=== PATIENT | female | born 1975 | race Caucasian/White ===

== ENCOUNTER 2020-09-21 13:15 | Outpatient (RCR) | payer MEDICAID, SELFPAY ==
[2020-08-31 14:39] VITALS: BP 136/84; PULSE 89; RESP 16; TEMP 36.4
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
[2020-09-07 15:36] VITALS: BP 142/62; PULSE 83; RESP 18; TEMP 35.8
[2020-09-07 15:36] LABS: Erythrocyte Sedimentation Rate 52 mm/hr (0-30)
[2020-09-07 15:39] LABS: Absolute Lymphocyte Count 1.81 X10^3/uL (0.83-4.51); Absolute Neutrophil Count 7.5 X10^3/uL (2.0-7.7); Basophil# 0.07 X10^3/uL; Basophil% 0.7 % (0-1); Eosinophil# 0.14 X10^3/uL; Eosinophils% 1.4 % (0-5); Hematocrit 38.7 % (37-47); Hemoglobin 11.7 g/dL (12.0-15.0); Lymphocyte # 1.81 X10^3/ul (4.0); Lymphocyte % 17.5 % (19-41); Mean Corp Hgb Conc 30.2 g/dL (32-36); Mean Corpuscular Hgb 27.1 pg (27.0-32.0); Mean Corpuscular Volume 89.6 fL (81-99); Mean Platelet Vol. 9.9 fl (6.2-12.0); Monocyte# 0.84 X10^3/uL; Monocyte% 8.1 % (0-10); NRBC Flagged by Analyzer 0 % (0-5); Neutrophil # 7.45 X10^3/uL (2.7-7.7); Neutrophil % 71.8 % (47-70); Platelet Count 319 K/mm3 (150-450); RBC Distribution Width CV 14.8 % (11.6-14.6); RBC Distribution Width SD 48.4 fl (35.1-43.9); Red Blood Count 4.32 M/mm3 (4.2-5.4); White Blood Count 10.4 K/mm3 (4.4-11.0)
[2020-09-07 16:06] LABS: ALB/GLOB Ratio 0.6 RATIO (0.9-2.4); AST(SGOT) 33 U/L (15-37); Alanine Aminotransfer ALT/SGPT 35 U/L (13-56); Albumin, Serum 2.9 g/dL (3.2-5.0); Alkaline Phosphatase 94 U/L (45-117); Anion Gap 2 (5-15); BUN 11 mg/dL (7-18); BUN/Creat Ratio 15.4 RATIO (10-20); Calcium,Total 8.5 mg/dL (8.5-10.1); Chloride 106 mmol/L (98-107); Creatinine, Serum 0.72 mg/dL (0.55-1.02); EST Glomerular Filtration Rate 94 mL/min (>60); Est Glom Filt Rate - Afr Amer 114 mL/min (>60); Globulin 4.9 g/dL (2.2-4.2); Glucose 99 mg/dL (74-106); Potassium 4.7 mmol/L (3.5-5.1); Prealbumin 13.8 mg/dL (20.0-40.0); Protein, Total 7.8 g/dL (6.4-8.2); Sodium Level 134 mmol/L (136-145)
[2020-09-07 16:08] VITALS: BP 140/64
--- NOTE | 2020-09-07 16:31 | RAD_ITS ---
STUDY: X-RAY - RIGHT TIBIA AND FIBULA REASON FOR EXAM: Female, 44 years old. Ulceration on the lynne. TECHNIQUE: AP and lateral view(s) of the tibia and fibula were obtained. COMPARISON: None. FINDINGS: Normal visualized tibia. Normal visualized fibula. There is no acute fracture, dislocation or destructive osseous pathology.. The knee and ankle are unremarkable. There is soft tissue swelling of the lynne. Phleboliths are seen laterally lower leg. RAD/Tibia & Fibula 2 Views IMPRESSION: 1. No osseous or articular abnormality. 2. Soft tissue edema suggesting cellulitis. Electronically Signed: Juan Jose Alexander DO at 22:44 EST Tel [phone], Service support ,
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
--- NOTE | 2020-09-08 12:00 | WC ---
Labs and x-ray reviewed per Hebert Cotter NP. X-ray showed no osteomylitis. Sed rate elevated, prealbumin low. Hebert instructed to call patient and increase protein intake and supplement with 3 protein shakes daily. Spoke with patient to review test results per Hebert instructions. Patient voiced understanding.
[2020-09-14 14:12] VITALS: BP 121/50; PULSE 84; RESP 16; TEMP 36.1
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
--- NOTE | 2020-09-14 17:08 | WC ---
Patient stated she never received wound care supplies that were ordered on 08/31/20. Spoke with Kyra from [facility], she stated supplies were shipped on 09/01 and delivered on 09/02 to correct address. [facility] will re-ship supplies with signature required. Also ordered silvercel 4x5 sheets. Patient should receive supplies tomorrow or friday. Patient notified.
--- NOTE | 2020-09-21 10:16 | VDLE_ITS ---
Reason For Study: edema RIGHT LEFT CFV is compressible, spontaneous, phasic, CFV is compressible, spontaneous, phasic, competent and demonstrates normal competent, and demonstrates normal augmentation. augmentation. FV is compressible, spontaneous, phasic, FV is compressible, spontaneous, phasic, competent and demonstrates normal competent and demonstrates normal augmentation. augmentation. POP V is compressible, spontaneous, phasic, POP V is compressible, spontaneous, phasic, competent and demonstrates normal competent and demonstrates normal augmentation. augmentation. T/P Trunk is compressible. T/P Trunk is compressible. PTV is compressible. PTV is compressible. RT PerV is compressible. LT PerV is compressible. SFJ is competent and measures .5 cm. SFJ is competent and measures .74 cm. GSV proximal thigh measures .16 x .17 cm. GSV proximal thigh measures .27 x .26 cm. GSV at knee measures .18 x .18 cm. GSV at knee measures .2 x .23 cm. GSV above knee is competent. GSV above knee is competent. GSV below knee is INCOMPETENT for greater GSV below knee is INCOMPETENT for greater than 0.5 seconds. than 0.5 seconds. SSV proximal calf is INCOMPETENT for greater SSV proximal calf is competent and than 0.5 seconds and measures .28 x .3 cm. measures .26 x .3 cm. Procedure This is a venous duplex using B-mode, color flow and spectral Doppler. Exam performed in department. The exam was diagnostic. VL/Venous Duplex US - Leo Extrem Interpretation Summary Deep veins of the lower extremities are bilaterally patent and compressible seg mentally. There is no evidence of deep vein thrombosis on either side. Valvular competence appears in tact within the proximal deep venous systems bilaterally. The great saphenous veins appear bila terally patent and compressible segmentally. Sapheno-femoral junctions are bilaterally competent . The right great saphenous vein appears competent above the knee. The right great saphenous vein appears incompetent below the knee. The left great saphenous vein appears competent above the knee. The left great saphenous vein appears incompetent below the knee. The right small saphenous ve in is patent and incompetent. The left small saphenous vein is patent and competent. Ordering Physician: Hebert Cotter Performed By: Rafal Chua RVT
--- NOTE | 2020-09-21 10:16 | ART_ITS ---
Reason For Study: PAD Procedure A bilateral lower extremity continuous wave Doppler with analog waveform analysis,segmental pressures,and ankle brachial indexes without exercise. Left Segmental Pressures Left brachial= 108mmHg. Left posterior tibial artery = 142mmHg. Left dorsalis pedis artery = 127mmHg. Left digit = 86 mmHg. The left dorsalis pedis waveforms are triphasic. The left posterior tibial artery waveforms are triphasic. Right Segmental Pressures Right brachial= 113mmHg. Right posterior tibial artery = 153mmHg. Right dorsalis pedis artery = 141mmHg. Right digit = 89 mmHg. The right dorsalis pedis waveforms are triphasic. The right posterior tibial artery waveforms are triphasic. Indices The right ankle brachial index by the dorsalis pedis is 1.25. The right ankle brachial index by the posterior tibial artery is 1.35. The right digital-brachial index is .79. The left ankle brachial index by the dorsalis pedis is 1.12. The left ankle brachial index by the posterior tibial artery is 1.26. The left digital-brachial index is .76. VL/Lower Ext Art Exam w/o Exercis Interpretation Summary Triphasic Doppler waveforms are noted at ankle level bilaterally. Pulse-volume recordings appear satisfactory bilaterally. Resting ankle-brachial indices are normal bilaterally . Digital-brachial indices are normal bilaterally. There is no evidence of significant arterial occlusive disease in the lower ext remities bilaterally. Ordering Physician: Hebert Cotter Performed By: JULIENNE TERRELL Jacquelin
[2020-09-21 13:14] VITALS: BP 129/78; PULSE 86; TEMP 36
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
== END 2020-09-27 23:59 ==
LOC: WC 13:15
PROVIDERS: PCP Nurse Practitioner Family; Visit Provider Nurse Practitioner Family
DX: L97.913 Non-pressure chronic ulcer of unspecified part of right lower leg with necrosis of muscle (principal); I73.9 Peripheral vascular disease, unspecified; F11.11 Opioid abuse, in remission; V89.2XXA Person injured in unspecified motor-vehicle accident, traffic, initial encounter; F17.210 Nicotine dependence, cigarettes, uncomplicated; Y92.410 Unspecified street and highway as the place of occurrence of the external cause
CPT/HCPCS: 11042; 11043; 11045; 11046; 36415; 73590; 80053; 84134; 85025; 85652; 87070; 87075; 87077; 87186; 87205; 93923; 93970; 99203; G0463

== ENCOUNTER 2020-10-02 16:30 | Inpatient (IN) | payer MEDICAID, SELFPAY ==
[2020-10-02 16:31] VITALS: BP 125/80; PULSE 84; RESP 14; TEMP 36.8; O2SAT 100; BMI 26.2
[2020-10-02 17:26] LABS: ALB/GLOB Ratio 0.4 RATIO (0.9-2.4); AST(SGOT) 47 U/L (15-37); Alanine Aminotransfer ALT/SGPT 39 U/L (13-56); Albumin, Serum 2.1 g/dL (3.2-5.0); Alkaline Phosphatase 86 U/L (45-117); Anion Gap 2 (5-15); BUN 11 mg/dL (7-18); BUN/Creat Ratio 11.6 RATIO (10-20); Calcium,Total 8.2 mg/dL (8.5-10.1); Chloride 109 mmol/L (98-107); Creatinine, Serum 0.95 mg/dL (0.55-1.02); EST Glomerular Filtration Rate 68 mL/min (>60); Est Glom Filt Rate - Afr Amer 82 mL/min (>60); Estimated Creatinine Clearance 57.02 ml/min; Globulin 5.1 g/dL (2.2-4.2); Glucose 93 mg/dL (74-106); Protein, Total 7.2 g/dL (6.4-8.2); Sodium Level 132 mmol/L (136-145)
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
[2020-10-02 17:36] LABS: Alcohol, Blood (Medical)-Serum < 3.0 mg/dL
[2020-10-02 17:41] LABS: Amphetamine Urine VISTA NEGATIVE (<1000 ng/mL); Barbiturate Urine VISTA NEGATIVE (< 200 ng/mL); Benzodiazepine Urine VISTA NEGATIVE (< 200 ng/mL); Cocaine Urine VISTA POSITIVE (< 300 ng/mL); Ecstacy Urine VISTA POSITIVE (< 500 ng/mL); Methadone Urine VISTA NEGATIVE (< 300 ng/mL); PCP Urine VISTA NEGATIVE (< 25 ng/mL); THC Urine VISTA NEGATIVE (< 50 ng/mL); Vista UDS pH Range 5
[2020-10-02 17:45] LABS: Internal QC Validated? YES +Cl - CLEAR BKGD; Pregnancy, Serum, hCG Quali. NEGATIVE Negative
--- NOTE | 2020-10-02 17:47 | ED.DCSUM_ITS ---
- ER Visit Summary Date of Service: 10/02/20 Chief Complaint: Requesting detox History of Present Illness: The patient is a 44 F presenting requesting detox from heroin. Patient states she uses IV heroin daily 1.5 g/day. She denies other drug use although she states sometimes her heroin is mixed with things that she is not aware of. She denies alcohol use. She smokes tobacco. She states prior to the past year she was sober for approximately 4 years. She is currently being treated at the wound center for a right lower extremity wound which has been healing. She was referred here for detox for her heroin abuse. Physical Examination: Vitals are stable. Patient is afebrile. Alert no acute distress. HEENT exam is unremarkable. Neck is supple. Lungs are clear and equal bilaterally. Heart is regular rate and rhythm. Abdomen is soft nontender nondistended. Extremities right lower extremity anterior wound with no fluctuance or drainage. Skin is warm and dry. No focal neurologic deficit. Remainder of exam is unremarkable. Emergency Department Course and Treatment: Chemistries normal except sodium 132. AST 47. hCG negative. Tox positive for opiate, methamphetamine, cocaine. Alcohol negative. Discussed with hospitalist for admission. Disposition: Admission Impression: Opiate dependence This note was generated with [employer] dictation software. It may contain incorrect words, spelling, and punctuation that were not noted in review of the chart prior to signing ED Disposition - Plan for ED Patient: Referrals: Hebert Cotter NP, [employer]BSERVER HELPER-C [Primary Care Provider] -
--- NOTE | 2020-10-02 17:56 | CM.ED ---
Social Work Consult: Substance Abuse Referral source: Self referral due to reason for visit. Met with patient in room. Introduced self and case management social worker role. Patient agreeable to speak with this case management social worker. Patient is seeking medical management of withdrawal symptoms. Patient reports main motivation for coming in was [facility], Dr. Cotter. Patient reports substance of choice as Heroin. Patient verbally agreeing to [facility] while speaking with this case management social worker. This case management social worker able to answer patient questions. Support provided. Telephone call to Raphael Lutz. Raphael updated on patient admission. Benjamin Alvarado MSW, REEMA-S
[2020-10-02 18:14] VITALS: BP 125/80; PULSE 84; RESP 14; TEMP 36.8; O2SAT 100
[2020-10-02 18:41] VITALS: BMI 25.9; BMI 26.0
[2020-10-02 18:42] VITALS: BP 116/85; PULSE 68; RESP 18; TEMP 37.1; O2SAT 98
--- NOTE | 2020-10-02 20:26 | NURSING ---
Pt is still deciding if she wants IV fluids.
--- NOTE | 2020-10-02 20:56 | EKG12_ITS ---
Test Reason : POS TOX SCREEN Blood Pressure : / mmHG Vent. Rate : 068 BPM Atrial Rate : 068 BPM P-R Int : 156 ms QRS Dur : 092 ms QT Int : 418 ms P-R-T Axes : 053 036 037 degrees QTc Int : 444 ms Normal sinus rhythm Normal ECG No previous ECGs available Confirmed by LUDMILA RUASCH, JONG ([id number]), legal editor SARINA RICARDO ([id number]) on 10/06/2020 3:02:52 PM Referred By: ZEE Confirmed By:RADHIKA KEYS MD
[2020-10-02 20:58] LABS: HIV - WCH Non-Reactive (Nonreactive)
[2020-10-02 21:23] VITALS: BP 107/68; PULSE 75; RESP 16; TEMP 37.2; O2SAT 98
[2020-10-02] MEDS: cloNIDine HCl 0.1 MG Tablet PO (21:35)
[2020-10-02] MEDS: traZODone 100 MG Tablet PO (21:35)
[2020-10-02] MEDS: Acetaminophen 500 MG Tablet PO (21:35)
[2020-10-03 03:00] VITALS: BP 115/69; PULSE 65; RESP 15; TEMP 36.8; O2SAT 97
[2020-10-03 08:01] VITALS: O2SAT 97
--- NOTE | 2020-10-03 08:32 | NURSING ---
wound photo: right lateral lower leg
--- NOTE | 2020-10-03 08:33 | NURSING ---
wound photo: right lower leg
--- NOTE | 2020-10-03 08:34 | NURSING ---
wound photo: left lower leg
[2020-10-03 08:35] VITALS: BP 103/68; PULSE 67; RESP 16; TEMP 36.6; O2SAT 97
--- NOTE | 2020-10-03 09:12 | ADDICTION ---
This leader writer met with PT to conduct ASAM, MSE, DUDIT assessments and to plan for d/c. PT A&Ox4 and presented with euthymic mood/broad affect. All assessments and d/c plan completed, faxed to [facility] and placed in PT's chart on [facility]. PT stated that she is currently unsure of her plans following d/c from [facility]. This leader writer provided education regarding treatment options and resources in [place], by her request, and [place]. This leader writer will f/u with PT on 10/04/20 to finalize d/c plan. PT amiable to meeting tomorrow.
[2020-10-03] MEDS: Acetaminophen 500 MG Tablet PO (09:44)
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
[2020-10-03 15:55] VITALS: BP 126/82; PULSE 64; RESP 16; TEMP 36.7; O2SAT 100
[2020-10-03] MEDS: Ondansetron 8 MG Tablet PO (19:07)
[2020-10-03] MEDS: Buprenorphine HCl 2 MG TAB.SUBL SL (19:44)
[2020-10-03 19:54] VITALS: BP 154/92; PULSE 107; RESP 16; TEMP 36.7; O2SAT 100
[2020-10-03] MEDS: Ibuprofen 600 MG Tablet PO (22:14)
[2020-10-03] MEDS: Methocarbamol 750 MG Tablet 1500 MG PO (22:14)
[2020-10-03] MEDS: Dicyclomine 10 MG Capsule 20 MG PO (22:14)
[2020-10-03] MEDS: Mag Hydrox/Al Hydrox/Simeth 30 ML UDC PO (22:15)
[2020-10-03] MEDS: traZODone 100 MG Tablet PO (22:15)
[2020-10-03] MEDS: cloNIDine HCl 0.1 MG Tablet PO (22:15)
[2020-10-04] MEDS: Buprenorphine HCl 2 MG TAB.SUBL SL ×3 (03:18→18:53)
[2020-10-04 07:07] LABS: HEPATITIS B SURFACE AG Negative (Negative); Hepatitis A AB, Total Positive (Negative); Hepatitis A IgM Antibody Negative (Negative); Hepatitis B Core AB IgM Negative (Negative); Hepatitis B Core Ab Total Negative (Negative)
[2020-10-04 07:57] VITALS: O2SAT 98
[2020-10-04] MEDS: Collagenase 30gm Tube 1 APPLIC TOPICAL (09:11)
[2020-10-04 09:35] VITALS: BP 143/76; PULSE 61; RESP 16; TEMP 36.9; O2SAT 100
--- NOTE | 2020-10-04 09:37 | ADDICTION ---
This check writer salesperson met with PT in her room to finalize d/c plans. PT stated that she is feeling shitty and did not want to engage in therapeutic conversation. This check writer salesperson verified that PT has the lists of resources this check writer salesperson provided for [facility] in preparation for PT's discharge. This check writer salesperson will attempt to meet with PT tomorrow (10/05).
[2020-10-04 09:48] LABS: Hep B Surface Antibodies Reactive (.)
[2020-10-04] MEDS: Methocarbamol 750 MG Tablet 1500 MG PO ×2 (09:48→18:53)
[2020-10-04] MEDS: Ondansetron 8 MG Tablet PO ×2 (09:48→18:52)
[2020-10-04] MEDS: cloNIDine HCl 0.1 MG Tablet PO ×2 (09:48→18:53)
[2020-10-04] MEDS: hydrOXYzine PAM 25 MG Capsule 50 MG PO ×2 (09:48→18:53)
[2020-10-04] MEDS: Dicyclomine 10 MG Capsule 20 MG PO ×2 (09:48→18:53)
[2020-10-04 10:01] LABS: Hepatitis C Ab >11.0 s/co ratio (0.0-0.9)
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
[2020-10-04 14:35] VITALS: BP 129/77; PULSE 81; RESP 18; TEMP 37.2; O2SAT 97
[2020-10-04] MEDS: Mag Hydrox/Al Hydrox/Simeth 30 ML UDC PO (14:39)
[2020-10-04] MEDS: Acetaminophen 500 MG Tablet PO (14:39)
[2020-10-04] MEDS: Gabapentin 300 MG Capsule PO ×2 (14:39→23:14)
[2020-10-04 18:51] VITALS: BP 135/85; PULSE 74; RESP 16; TEMP 37.1; O2SAT 99
[2020-10-04] MEDS: traZODone 100 MG Tablet PO (23:14)
[2020-10-04 23:27] VITALS: BP 151/98; PULSE 74; RESP 16; TEMP 37.2; O2SAT 100
[2020-10-05] MEDS: Ibuprofen 600 MG Tablet PO (03:29)
[2020-10-05] MEDS: Buprenorphine HCl 2 MG TAB.SUBL SL ×2 (03:29→10:06)
[2020-10-05 03:30] VITALS: BP 160/82; PULSE 84; RESP 18; TEMP 37.3; O2SAT 97
[2020-10-05 07:32] VITALS: O2SAT 97
--- NOTE | 2020-10-05 08:07 | PCM.DC ---
- Discharge Diagnoses Current Active Problems: Current Active and Chronic Problems Nonhealing ulcer of right lower extremity (Acute) PVD (peripheral vascular disease) (Chronic) Tobacco abuse (Chronic) History of opioid abuse (Acute) You will use the following diet at home:: Regular Your food should be the consistency of: Regular Discharge Activity: May Not Drive Call your doctor if you observe: Fever of 101 or Higher, Coldness, Increased Pain, Numbness or Tingling, Change in Color, Inability to have a bowel movement, Shortness of breath, Dizziness, Fainting spells, Swelling in the ankles, Chest pain, Prolonged hiccoughing, Increased palpitations (irregular heartbeat), Calf discomfort, Uncontrolled pain Additional Instructions: Follow-up opioid outpatient rehab for Vivitrol treatment Allergies/Adverse Reactions: Allergies No Known Allergies Allergy (Verified 10/02/20 16:31) Medications to take at Discharge Nicotine [Nicoderm Cq] 21 mg TD DAILY #30 patch 10/05/20 The following prescriptions were given: Nicotine [Nicoderm Cq] 21 mg TD DAILY #30 patch Transmission Status: Pending to [facility] Primary Care Physician: Hebert Cotter NP, [employer] P[employer] DEVELOPER-C [Primary Care Provider] - Please follow up with your Primary Care Physician in: in 2 weeks Test Results: Test results from this visit will be discussed in further detail at your follow-up appointment, if applicable.
--- NOTE | 2020-10-05 08:07 | PCM.DC.SUM ---
Discharge Date and Diagnosis - Problem List Patient Problems: Active and Suspected Problems Nonhealing ulcer of right lower extremity (Acute) History of opioid abuse (Acute) Date of Admission: 10/02/20 Date of Discharge: 10/05/20 - Primary Discharge Diagnosis Acute Problems: Active Problems Nonhealing ulcer of right lower extremity (Acute) History of opioid abuse (Acute) - Secondary Discharge Diagnosis Chronic Problems: Chronic Problems PVD (peripheral vascular disease) (Chronic) Tobacco abuse (Chronic) Hospital Course and Treatment Consultations 10/02/20 18:40 Consult: Onc/Wound/supervisor rubber covering Routine Comment: Summary of Care Provided: The patient is a 44 year old F admitted for acute opioid withdrawal medical stabilization. She is on buprenorphine based other supportive medications as needed to control anxiety, restless leg symptoms. COWS/CINA monitoring was done. Patient has severe anxiety, restlessness, aches and pains. Discussed with Raeann Henriquez RN. Hepatitis profile shows chronic hepatitis A with IgM negative but total antibody positive. Hepatitis C antibody positive suggestive of chronic hepatitis C. HIV 1 and 2 antibody nonreactive. She has planned Vivitrol as an outpatient probably 8 to 10 days after last dose of buprenorphine which she had in the hospital. Bilateral superficial ulcer on the shins: Erythema has decreased. Chronic opioid use and dependence in progress, cigarette smoking, nicotine use and dependence, polysubstance use, cocaine and methamphetamine: U tox positive of opioids, methamphetamine and cocaine. Alcohol level 0. I have discussed my assessment with DILIP Pereira and orders have been reviewed. Patient Problems: Active and Suspected Problems Nonhealing ulcer of right lower extremity (Acute) History of opioid abuse (Acute) Objective: Patient heart rate and blood pressure are controlled. Still feels mild anxiety and restless. Discussed with the 180 case planner. Physical exam: General: Alert, Oriented x3, Cooperative HEENT: Atraumatic, PERRLA, EOMI, Normocephalic Oral: No Gingival or Mucosal Lesions/ Ulcerations Neck: Supple, No JVD, Negative Carotid Bruits Lungs: Air entry diminished in bilateral lung bases. No crepitation/rhonchi Cardiovascular: Regular rate, Regular Rhythm, Normal S1, Normal S2, No murmurs Abdomen: Bowel Sounds Present, Soft, Non Tender, Non-Distended : No renal angle tenderness. No suprapubic tenderness. Extremities: Chronic woody induration of both upper and lower extremities secondary to thrombophlebitis. No edema, Capillary Refill Less than 3 Seconds Skin: Bilateral superficial ulcer on the shins. Has improved. Musculoskeletal: No Tenderness to Palpation of Joints or Extremities Neurological: Cranial nerves II-XII grossly intact, Deep Tendon Reflexes 2+/4 and Symmetrical, Neuro grossly intact Psych/Mental Status: Normal Affect, Appropriate. - Physical Exam Vitals/I&O's: Vital Signs Temp Pulse Resp BP Pulse Ox 99.2 F H 84 18 160/82 H 97 10/05/20 03:30 10/05/20 03:30 10/05/20 03:30 10/05/20 03:30 10/05/20 03:30 Oxygen Delivery Method Room Air Weight: 137 lb 8 oz Body Mass Index (BMI) 25.9 Intake and Output for Last 24 Hours 10/03/20 10/04/20 10/05/20 23:59 23:59 23:59 Intake Total 850 / 850 Balance 850 / 850 Laboratory Results 10/02/20 19:37: Hepatitis A IgM Ab Negative, Hepatitis A Ab Total Positive H, Hep Bs Antigen Negative, Hep B Core Total Ab Negative, Hep B Core IgM Ab Negative, Hepatitis C Ab Confirm >11.0 H Current Medications Acetaminophen (Acetaminophen 500 Mg Tablet) 500 mg PO Q4H PRN PRN PRN Reason: Temp > 100.4 F, pain 1-10 Last Admin: 10/04/20 14:39 Dose: 500 mg Documented by: Al Hydroxide/Mg Hydroxide (Mag Hydrox/Al Hydrox/Simeth 30 Ml Udc) 30 ml PO Q6H PRN PRN PRN Reason: dyspesia Last Admin: 10/04/20 14:39 Dose: 30 ml Documented by: Albuterol Sulfate (Albuterol 2.5 Mg/3 Ml Vial.Neb.) 2.5 mg INHALATION Q2H PRN PRN PRN Reason: Dyspnea, wheezing Bisacodyl (Bisacodyl 10 Mg Suppository) 10 mg RC DAILY PRN PRN Reason: Constipation Buprenorphine HCl (Buprenorphine Hcl 2 Mg Tab.Subl) 2 mg SL Q8H OMER; Taper Stop: 10/06/20 19:29 Last Admin: 10/05/20 03:29 Dose: 2 mg Documented by: Clonidine (Clonidine Hcl 0.1 Mg Tablet) 0.1 mg PO Q8H PRN PRN PRN Reason: RESTLESSNESS Last Admin: 10/04/20 18:53 Dose: 0.1 mg Documented by: Collagenase (Collagenase 30gm Tube) 1 applic TOPICAL DAILY [facility]; Protocol Last Admin: 10/04/20 09:11 Dose: 1 applic Documented by: Dicyclomine HCl (Dicyclomine 10 Mg Capsule) 20 mg PO Q6H PRN PRN PRN Reason: Abdominal Discomfort Last Admin: 10/04/20 18:53 Dose: 20 mg Documented by: Gabapentin (Gabapentin 300 Mg Capsule) 300 mg PO Q8H PRN PRN PRN Reason: moderate to severe anxiety Last Admin: 10/04/20 23:14 Dose: 300 mg Documented by: Hydralazine HCl (Hydralazine 20 Mg/Ml Vial) 10 mg IV Q4H PRN PRN PRN Reason: SBP > 160 Hydroxyzine Pamoate (Hydroxyzine Swapna 25 Mg Capsule) 50 mg PO Q6H PRN PRN PRN Reason: mild anxiety Last Admin: 10/04/20 18:53 Dose: 50 mg Documented by: Ibuprofen (Ibuprofen 600 Mg Tablet) 600 mg PO Q8H PRN PRN PRN Reason: PAIN Last Admin: 10/05/20 03:29 Dose: 600 mg Documented by: Loperamide HCl (Loperamide 2 Mg Capsule) 2 mg PO Q4H PRN PRN PRN Reason: LOOSE STOOLS Methocarbamol (Methocarbamol 750 Mg Tablet) 1,500 mg PO Q6H PRN PRN PRN Reason: MUSCLE SPASM Last Admin: 10/04/20 18:53 Dose: 1,500 mg Documented by: Nicotine (Nicotine 21 Mg Patch) 21 mg TD DAILY [facility] Last Admin: 10/04/20 09:48 Dose: 21 mg Documented by: Ondansetron HCl (Ondansetron 8 Mg Tablet) 8 mg PO Q8H PRN PRN PRN Reason: NAUSEA Last Admin: 10/04/20 18:52 Dose: 8 mg Documented by: Senna (Senna Tablet) 2 tablet PO QHS PRN PRN Reason: Constipation Trazodone HCl (Trazodone 100 Mg Tablet) 100 mg PO QHS PRN PRN PRN Reason: INSOMNIA Last Admin: 10/04/20 23:14 Dose: 100 mg Documented by: Home Medications: Medications to take at Discharge Nicotine [Nicoderm Cq] 21 mg TD DAILY #30 patch 10/05/20 Following Prescriptions Were Given to Patient: Nicotine [Nicoderm Cq] 21 mg TD DAILY #30 patch Transmission Status: Received by [facility] Primary Care Physician: Hebert Cotter NP, MAILING SECTION CLERK-C [Primary Care Provider] - Medical Necessity - Tobacco Use Smoking Status: Current every day smoker Tobacco Use: Cigarettes Meaningful Use Info Meaningful Use Diagnoses (Choose all that apply): None applicable Inpatient E&M: 43904 [facility]
[2020-10-05 09:10] VITALS: BP 136/90; PULSE 75; RESP 18; TEMP 37.3; O2SAT 96
[2020-10-05 10:10] VITALS: BP 136/90; PULSE 75; RESP 18; TEMP 37.3; O2SAT 100
== END 2020-10-05 10:20 | disposition home or self-care (01) | DRG 773 ==
LOC: ED 17:14 → MS3 17:50
PROVIDERS: Admitting Provider Family Medicine; Emergency Provider Emergency Medicine; PCP Nurse Practitioner Family; Visit Provider Internal Medicine
DX: F11.23 Opioid dependence with withdrawal (principal); F17.210 Nicotine dependence, cigarettes, uncomplicated; I73.9 Peripheral vascular disease, unspecified; B18.2 Chronic viral hepatitis C; V89.2XXD Person injured in unspecified motor-vehicle accident, traffic, subsequent encounter; L97.829 Non-pressure chronic ulcer of other part of left lower leg with unspecified severity; L97.819 Non-pressure chronic ulcer of other part of right lower leg with unspecified severity; F14.90 Cocaine use, unspecified, uncomplicated; F15.90 Other stimulant use, unspecified, uncomplicated
CPT/HCPCS: 36415; 80053; 80307; 82077; 84703; 86703; 86704; 86705; 86706; 86708; 86709; 86803; 87340; 93005; 99283; 99406

== ENCOUNTER 2020-10-26 14:30 | Outpatient (RCR) | payer MEDICAID, SELFPAY ==
[2020-09-28 00:48] VITALS: BP 129/78; PULSE 86; RESP 16; TEMP 36
[2020-10-12 14:39] VITALS: BP 145/93; PULSE 94; RESP 18; TEMP 36.4
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
[2020-10-16 11:00] VITALS: BP 136/86; PULSE 81; RESP 16; TEMP 36.7
[2020-10-19 14:45] VITALS: BP 143/85; PULSE 71; TEMP 36.9
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
[2020-10-26 14:36] VITALS: BP 121/68; PULSE 69; RESP 20; TEMP 37.2
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
== END 2020-10-27 23:59 ==
LOC: WC 14:30
PROVIDERS: PCP Nurse Practitioner Family; Visit Provider Nurse Practitioner Family
DX: L97.913 Non-pressure chronic ulcer of unspecified part of right lower leg with necrosis of muscle (principal); I87.2 Venous insufficiency (chronic) (peripheral); I73.9 Peripheral vascular disease, unspecified; F11.11 Opioid abuse, in remission; F17.210 Nicotine dependence, cigarettes, uncomplicated; V89.2XXA Person injured in unspecified motor-vehicle accident, traffic, initial encounter; Y92.410 Unspecified street and highway as the place of occurrence of the external cause
CPT/HCPCS: 15271; 29581; Q4101

== ENCOUNTER 2020-11-20 17:29 | Observation (INO) | payer MEDICAID, SELFPAY ==
[2020-10-02 18:41] VITALS: BMI 25.9
[2020-11-20 17:30] VITALS: BP 124/78; PULSE 80; RESP 16; TEMP 36.4; O2SAT 96; BMI 26.0
--- NOTE | 2020-11-20 18:02 | EX.ED.DYSGE1 ---
HPI History of Present Illness Chief Complaint: Substance Abuse Detail of Chief Complaint: Substance abuse and swollen red left hand Informant: patient and spouse/S.O. Onset/Context/Timing Onset: Days (Past several days the right hand has been red and swollen) Context: Sudden Onset Timing: Continuous Quality: Tightness and redness dorsum left hand Location: Dorsum left hand Current Severity: Mild Maximum Severity: Mild Worsened by: IV drug use Relieved by: Nothing Associated Symptoms Associated Symptoms: No associated symptoms and no history of being immune suppressed, rheumatic Narrative Narrative: Patient is a 44-year-old woman who injects half a gram of heroin a day. Last detox was several months ago. She states she is hepatitis negative and HIV negative. She last used this morning. She has not injected into her left hand for the past 3 to 4 days. She denies fever, chills or night sweats. Denies weight loss. She denies ocular, visual auditory symptoms. She denies chest pain, shortness of breath or difficulty breathing. She denies nausea, vomiting or diarrhea. She denies myalgias or arthralgias. Prior similar symptoms: Yes Recent Illness/Hospitalization: Yes (Patient states she was admitted to detox approximately 3 months ago.) [facility] Medical History (Updated 11/20/20 @ 19:[address] Toño Whitley MD) Heroin abuse Home Medications NK 11/20/20 [History Last Taken Unknown] Allergy/AdvReac Type Severity Reaction Status Date / Time No Known Allergies Allergy Verified 11/20/20 17:31 Surgical History (Updated 11/20/20 @ 18:40 by Annette Vyas) History of cholecystectomy History of tonsillectomy History of tubal ligation Social History (Updated 11/20/20 @ 18:[address] Toño Whitley MD) household members: significant other Smoking Status: Current every day smoker alcohol intake: current alcohol intake frequency: a few times a week substance use type: heroin ROS ROS ED Constitutional Constitutional ED: Denies chills, fever(s), subjective or sweats Eyes Eyes: Denies blurry vision, change in vision or diplopia ENT ENT ED: Denies ear pain, rhinorrhea or sore throat Cardiovascular Cardiovascular: Denies chest pain, palpitations or racing heartbeat Respiratory/Chest Respiratory/Chest: Denies cough, dyspnea or dyspnea on exertion Gastrointestinal Gastrointestinal: Denies abdominal pain, diarrhea, nausea or vomiting Genitourinary Genitourinary ED: Denies dysuria, hematuria or urinary frequency Musculoskeletal Musculoskeletal: Reports other Details: Swelling and redness left hand ; Denies arthralgias, back pain, myalgias or neck pain Integumentary Reports rash Neurologic Neurologic: Denies headache(s) or weakness Allergic/Immunologic Allergic/Immunologic ED: Denies mouth swelling, tongue swelling or urticaria EXAM Physical Exam Const Vital Signs: 11/20/20 17:30 11/20/20 18:37 11/20/20 19:05 Temperature 97.6 F L 98.0 F Temperature Source Temporal Oral Pulse Rate 80 70 Respiratory Rate 16 13 17 Blood Pressure 124/78 H 112/72 Blood Pressure Mean 93 85 Pulse Ox 96 Oxygen Delivery Method Room Air Room Air Room Air Positive well nourished and well developed General Appearance ED: well developed and NAD HEENT Reports TM's clear and moist mucous membranes HEENT Narrative: Nares patent. Ears appear normal. There is no asymmetry of the face. Tympanic Membrane ED: Yes TM's clear Eyes PERRL and EOMs intact bilaterally General Eye ED: Negative for pale conjunctiva or scleral icterus Neck no lymphadenopathy, supple and no JVD Chest Wall inspection of chest normal Resp normal respiratory effort and clear to auscultation bilaterally Cardio regular rate, regular rhythm, S1 normal heart sound, S2 normal heart sound and no murmurs GI normal to inspection, nondistended, normoactive bowel sounds Back/Spine no CVA tenderness Cervical Spine: Negative for cervical spine tenderness Thoracic Spine / Upper Back: Negative for thoracic spinal tenderness or paraspinal muscle tenderness Extremity Extremity Narrative: There is evidence of cellulitis dorsum left hand. There is no fluctuance. There is no lymphangitis. There is no epitrochlear lymphadenopathy noted. General Extremety ED: Yes edema and tenderness General Extremity: edema Neuro oriented x3, CN's II-XII intact bilaterally and no sensory deficits noted Sensorium / Orientation: alert Motor Exam: strength 5/5 throughout Psych mental status grossly normal Skin no rashes or lesions noted MDM MDM MDM Narrative Medical decision making narrative: Patient presents for detox. Appropriate orders were placed for addiction medicine. Because of the cellulitis a sepsis work-up was initiated. If lactate is elevated will obtain blood cultures prior to administration of IV antibiotics. If lactate is normal will start on appropriate biotics for skin infection. Lab Data Attestation: I reviewed the patient's lab results. Labs: Laboratory Results - last 24 hr 11/20/20 11/20/20 11/20/20 18:30 18:30 18:30 WBC 9.2 RBC 4.20 Hgb 12.0 Hct 37.9 MCV 90.2 MCH 28.6 MCHC 31.7 L RDW Std Deviation 52.5 H RDW Coeff of Renuka 15.8 H Plt Count 314 MPV 10.1 Immature Gran % (Auto) 0.200 Neut % (Auto) 58.4 Lymph % (Auto) 24.6 [place] % (Auto) 11.6 H Eos % (Auto) 4.4 Baso % (Auto) 0.8 Absolute Neuts (auto) 5.4 Absolute Lymphs (auto) 2.27 Nucleated RBC % 0 Sodium 137 Potassium 3.9 Chloride 106 Carbon Dioxide 27.0 Anion Gap 4 L BUN 7 Creatinine 0.83 Estim Creat Clear Calc 65.27 Est GFR (MDRD) Af Amer 96 Est GFR (MDRD) Non-Af 79 BUN/Creatinine Ratio 8.4 L Glucose 80 Lactic Acid Calcium 8.6 Total Bilirubin 0.10 L AST 27 ALT 33 Alkaline Phosphatase 98 Total Protein 7.5 Albumin 3.1 L Globulin 4.4 H Albumin/Globulin Ratio 0.7 L Serum , Qual Urine Opiates Screen Urine Methadone Screen Ur Barbiturates Screen Ur Phencyclidine Scrn Ur Amphetamines Screen U Methamphetamin-MDMA U Benzodiazepines Scrn Urine Cocaine Screen U Cannabinoids Screen Ur Drug Screen Comment Ethyl Alcohol 6.0 11/20/20 11/20/20 11/20/20 18:30 18:30 18:57 WBC RBC Hgb Hct MCV MCH MCHC RDW Std Deviation RDW Coeff of Renuka Plt Count MPV Immature Gran % (Auto) Neut % (Auto) Lymph % (Auto) [place] % (Auto) Eos % (Auto) Baso % (Auto) Absolute Neuts (auto) Absolute Lymphs (auto) Nucleated RBC % Sodium Potassium Chloride Carbon Dioxide Anion Gap BUN Creatinine Estim Creat Clear Calc Est GFR (MDRD) Af Amer Est GFR (MDRD) Non-Af BUN/Creatinine Ratio Glucose Lactic Acid 1.8 Calcium Total Bilirubin AST ALT Alkaline Phosphatase Total Protein Albumin Globulin Albumin/Globulin Ratio Serum , Qual NEGATIVE Urine Opiates Screen POSITIVE H Urine Methadone Screen NEGATIVE Ur Barbiturates Screen NEGATIVE Ur Phencyclidine Scrn NEGATIVE Ur Amphetamines Screen NEGATIVE U Methamphetamin-MDMA POSITIVE H U Benzodiazepines Scrn NEGATIVE Urine Cocaine Screen POSITIVE H U Cannabinoids Screen NEGATIVE Ur Drug Screen Comment Ethyl Alcohol Talk screen is positive for opiates, methamphetamine and cocaine. White count is normal. Lactate is normal. Patient has no abnormal vital signs. Since patient does not have 2 sirs criteria blood cultures were not obtained prior to administration of antibiotics. Since she is an IV drug user will treat with Zosyn and vancomycin. Discharge Plan Triage Chief Complaint: Substance Abuse ED Provider: Toño Whitley Dx/Rx/DC Orders Clinical Impression: Cellulitis of finger of left hand, Heroin addiction, Cocaine use Prescriptions: No Action NK RF: 0 Primary Care Provider: Hebert Cotter NP Referrals: Hebert Cotter NP, [employer] [Primary Care Provider] - Disposition Disposition: Acute Care Hospital [facility]
[2020-11-20 18:37] VITALS: BP 112/72; PULSE 68; PULSE 70; RESP 12; RESP 13; TEMP 36.7
[2020-11-20 18:43] LABS: Absolute Lymphocyte Count 2.27 X10^3/uL (0.83-4.51); Absolute Neutrophil Count 5.4 X10^3/uL (2.0-7.7); Basophil# 0.07 X10^3/uL; Basophil% 0.8 % (0-1); Eosinophil# 0.41 X10^3/uL; Eosinophils% 4.4 % (0-5); Hematocrit 37.9 % (37-47); Lymphocyte # 2.27 X10^3/ul (0.83-4.51); Lymphocyte % 24.6 % (19-41); Mean Corp Hgb Conc 31.7 g/dL (32-36); Mean Corpuscular Hgb 28.6 pg (27.0-32.0); Mean Corpuscular Volume 90.2 fL (81-99); Mean Platelet Vol. 10.1 fl (6.2-12.0); Monocyte# 1.07 X10^3/uL; Monocyte% 11.6 % (0-10); NRBC Flagged by Analyzer 0 % (0-5); Neutrophil # 5.38 X10^3/uL (2.7-7.7); Neutrophil % 58.4 % (47-70); Platelet Count 314 K/mm3 (150-450); RBC Distribution Width CV 15.8 % (11.6-14.6); RBC Distribution Width SD 52.5 fl (35.1-43.9); White Blood Count 9.2 K/mm3 (4.4-11.0)
[2020-11-20 19:00] LABS: ALB/GLOB Ratio 0.7 RATIO (0.9-2.4); AST(SGOT) 27 U/L (15-37); Alanine Aminotransfer ALT/SGPT 33 U/L (13-56); Albumin, Serum 3.1 g/dL (3.2-5.0); Alkaline Phosphatase 98 U/L (45-117); Anion Gap 4 (5-15); BUN 7 mg/dL (7-18); BUN/Creat Ratio 8.4 RATIO (10-20); Calcium,Total 8.6 mg/dL (8.5-10.1); Chloride 106 mmol/L (98-107); Creatinine, Serum 0.83 mg/dL (0.55-1.02); EST Glomerular Filtration Rate 79 mL/min (>60); Est Glom Filt Rate - Afr Amer 96 mL/min (>60); Estimated Creatinine Clearance 65.27 ml/min; Globulin 4.4 g/dL (2.2-4.2); Glucose 80 mg/dL (74-106); Potassium 3.9 mmol/L (3.5-5.1); Protein, Total 7.5 g/dL (6.4-8.2); Sodium Level 137 mmol/L (136-145)
[2020-11-20 19:03] LABS: Internal QC Validated? YES +Cl - CLEAR BKGD; Pregnancy, Serum, hCG Quali. NEGATIVE Negative
[2020-11-20 19:04] LABS: Record Kit Lot#, Serum Preg. 42100
[2020-11-20 19:05] VITALS: RESP 17
[2020-11-20 19:09] LABS: Lactic Acid 1.8 mmol/L (0.4-1.9)
[2020-11-20 19:23] LABS: Amphetamine Urine VISTA NEGATIVE (<1000 ng/mL); Barbiturate Urine VISTA NEGATIVE (< 200 ng/mL); Benzodiazepine Urine VISTA NEGATIVE (< 200 ng/mL); Cocaine Urine VISTA POSITIVE (< 300 ng/mL); Ecstacy Urine VISTA POSITIVE (< 500 ng/mL); Methadone Urine VISTA NEGATIVE (< 300 ng/mL); PCP Urine VISTA NEGATIVE (< 25 ng/mL); THC Urine VISTA NEGATIVE (< 50 ng/mL); Vista UDS pH Range 5
--- NOTE | 2020-11-20 19:58 | HP.PCM_ITS ---
HPI - General HPI Narrative RODOLFO GONZÁLES, is a 44 F who presents today for detox from opioids. Patient also reports redness and swelling to left hand that presented yesterday. Patient states that she has not injected into left hand in 3 to 4 days. Patient states that her hand is painful 6 out of 10 and stiff. Patient is a heroin user reporting that she uses half a gram a day. Patient denies other drug use however patient's toxicology screen was positive for methamphetamines and cocaine. Patient also reports being 1/2 to 1 pack/day smoker. Patient denies fever, chills, shortness of breath, nausea, vomiting. Patient reports that her last use was earlier today. [facility] Medical History Heroin abuse Home Medications NK 11/20/20 [History Last Taken Unknown] Allergy/AdvReac Type Severity Reaction Status Date / Time No Known Allergies Allergy Verified 11/20/20 17:31 Surgical History History of cholecystectomy History of tonsillectomy History of tubal ligation Social History household members: significant other Smoking Status: Current every day smoker alcohol intake: current alcohol intake frequency: a few times a week substance use type: heroin ROS Constitutional Constitutional: Denies anorexia, chills or fatigue Cardiovascular Cardiovascular: Denies chest pain, edema or palpitations Respiratory/Chest Respiratory/Chest: Denies cough, shortness of breath at rest or shortness of breath with exertion Gastrointestinal Gastrointestinal: Denies abdominal pain, constipation, diarrhea, nausea or vomiting Genitourinary Genitourinary: Denies dysuria Musculoskeletal Musculoskeletal: Reports extremity pain and stiffness; Denies back pain Integumentary Integumentary: Reports wounds; Denies dry skin Neurologic Neurologic: Denies abnormal gait, abnormal speech, confusion or dizziness Psychiatric Psychiatric: Denies anxiety or depression Endocrine Endocrinology: Denies change in body appearance Hematologic/Lymphatic Hematologic/Lymphatic: Denies easy bleeding or easy bruising Vital Signs Vital Signs Vital Signs: 11/20/20 17:30 11/20/20 18:37 11/20/20 19:05 Temperature 97.6 F L 98.0 F Temperature Source Temporal Oral Pulse Rate 80 70 Respiratory Rate 16 13 17 Blood Pressure 124/78 H 112/72 Blood Pressure Mean 93 85 Pulse Ox 96 Oxygen Delivery Method Room Air Room Air Room Air Weight Weight: 138 lb Body Mass Index (BMI) 26.0 Physical Exam Const alert and oriented x3 General Appearance: cooperative HEENT normocephalic and head/scalp atraumatic Eyes PERRL Neck supple, no JVD and thyroid normal General: trachea midline Lymph Lymphatic: no lymphadenopathy noted Resp normal respiratory effort, normal air movement and clear to auscultation bilaterally Cardio regular rate, regular rhythm, S1 normal heart sound and S2 normal heart sound GI normal to inspection, nondistended, normoactive bowel sounds, soft to palpation and non-tender Extremity General Extremity: normal exam except as noted Left Upper Extremity: hand and digits inspection (Erythema and swelling noted to dorsal aspect of hand and fingers), palpation (Tender with palpation), ROM (Patient able to make a fist, reports tightness) and neurovascular exam (Sensation intact) Skin Rashes: rashes noted Wounds: wounds noted Neuro CN's II-XII intact bilaterally Psych thought process normal, cooperative and affect normal Appearance: appropriate Lab / Micro Data Result Diagrams: 11/20/20 18:30 11/20/20 18:30 Labs: Laboratory Results - last 24 hr 11/20/20 11/20/20 11/20/20 18:30 18:30 18:30 WBC 9.2 RBC 4.20 Hgb 12.0 Hct 37.9 MCV 90.2 MCH 28.6 MCHC 31.7 L RDW Std Deviation 52.5 H RDW Coeff of Renuka 15.8 H Plt Count 314 MPV 10.1 Immature Gran % (Auto) 0.200 Neut % (Auto) 58.4 Lymph % (Auto) 24.6 [place] % (Auto) 11.6 H Eos % (Auto) 4.4 Baso % (Auto) 0.8 Absolute Neuts (auto) 5.4 Absolute Lymphs (auto) 2.27 Nucleated RBC % 0 Sodium 137 Potassium 3.9 Chloride 106 Carbon Dioxide 27.0 Anion Gap 4 L BUN 7 Creatinine 0.83 Estim Creat Clear Calc 65.27 Est GFR (MDRD) Af Amer 96 Est GFR (MDRD) Non-Af 79 BUN/Creatinine Ratio 8.4 L Glucose 80 Lactic Acid Calcium 8.6 Total Bilirubin 0.10 L AST 27 ALT 33 Alkaline Phosphatase 98 Total Protein 7.5 Albumin 3.1 L Globulin 4.4 H Albumin/Globulin Ratio 0.7 L Serum , Qual Urine Opiates Screen Urine Methadone Screen Ur Barbiturates Screen Ur Phencyclidine Scrn Ur Amphetamines Screen U Methamphetamin-MDMA U Benzodiazepines Scrn Urine Cocaine Screen U Cannabinoids Screen Ur Drug Screen Comment Ethyl Alcohol 6.0 11/20/20 11/20/20 11/20/20 18:30 18:30 18:57 WBC RBC Hgb Hct MCV MCH MCHC RDW Std Deviation RDW Coeff of Renuka Plt Count MPV Immature Gran % (Auto) Neut % (Auto) Lymph % (Auto) [place] % (Auto) Eos % (Auto) Baso % (Auto) Absolute Neuts (auto) Absolute Lymphs (auto) Nucleated RBC % Sodium Potassium Chloride Carbon Dioxide Anion Gap BUN Creatinine Estim Creat Clear Calc Est GFR (MDRD) Af Amer Est GFR (MDRD) Non-Af BUN/Creatinine Ratio Glucose Lactic Acid 1.8 Calcium Total Bilirubin AST ALT Alkaline Phosphatase Total Protein Albumin Globulin Albumin/Globulin Ratio Serum , Qual NEGATIVE Urine Opiates Screen POSITIVE H Urine Methadone Screen NEGATIVE Ur Barbiturates Screen NEGATIVE Ur Phencyclidine Scrn NEGATIVE Ur Amphetamines Screen NEGATIVE U Methamphetamin-MDMA POSITIVE H U Benzodiazepines Scrn NEGATIVE Urine Cocaine Screen POSITIVE H U Cannabinoids Screen NEGATIVE Ur Drug Screen Comment Ethyl Alcohol Assessment & Plan Assessment/Plan (1) Desire for detoxification: (2) Heroin addiction: (3) Cellulitis of finger of left hand: PLAN: 1. Desire for detoxification -Admit to [facility] for ramp program -Buprenorphine taper ordered per protocol along with supportive medications for withdrawal -Regular diet -Case management consulted to coordinate with [facility] for outpatient follow- up -Vital signs per protocol 2. Heroin addiction -See above 3. Cellulitis of left hand -Likely related to IV drug use -Patient received first dose of Vanco and Zosyn in ER due to long-term IV drug use, will continue on admission -CBC and CMP daily, trend white blood cell count. -Encourage fluids -Elevate left hand -No obvious opening to skin or drainage at this time. If area begins to drain I would encourage ordering a wound culture. DVT Prophylaxis-ambulation, pharmacological prophylaxis not indicated This patient was seen by Alice Kapoor NP-C under the supervision of Dr. Dunne.
[2020-11-20 20:01] VITALS: BP 102/69; PULSE 63; RESP 18; TEMP 36.6; O2SAT 95
--- NOTE | 2020-11-20 20:32 | CM.ED ---
SOCIAL WORK Referral Source: Self-Referral Reason for Consult: Substance Abuse Patient presents for detox from heroin. Patient reported last use early this morning. Call to [facility] Treatment Navigator, Argelia to update on patient's admission. Argelia reports Florence to be in tomorrow morning to complete assessment. Plan: Admit to NATHALY Mcfarlane MSW, ELECT[employer]ICAL ENGINEERING TECHNOLOGIST
[2020-11-20 21:31] VITALS: BMI 25.6
[2020-11-20 21:49] VITALS: BP 115/65; PULSE 61; RESP 16; TEMP 36.6; O2SAT 97
--- NOTE | 2020-11-20 22:38 | PCM.RX.CS ---
Consult Pharmacy has been consulted to manage selected antiobiotic: Vancomycin Type of Consult: New start Suspected Infection: Skin/Soft tissue Labs: Sodium 137 mmol/L (136-145) 11/20/20 18:30 Potassium 3.9 mmol/L (3.5-5.1) 11/20/20 18:30 Chloride 106 mmol/L (98-107) 11/20/20 18:30 Carbon Dioxide 27.0 mmol/L (21.0-32.0) 11/20/20 18:30 Anion Gap 4 (5-15) L 11/20/20 18:30 BUN 7 mg/dL (7-18) 11/20/20 18:30 Creatinine 0.83 mg/dL (0.55-1.02) 11/20/20 18:30 Est GFR (MDRD) Af Amer 96 mL/min (>60) 11/20/20 18:30 Est GFR (MDRD) Non-Af 79 mL/min (>60) 11/20/20 18:30 BUN/Creatinine Ratio 8.4 RATIO (10-20) L 11/20/20 18:30 Glucose 80 mg/dL (74-106) 11/20/20 18:30 Weight used for dosin.6 kg Estimated Creatinine Clearance: 72.6 Goal Trough: 15-20 mcg/mL Pharmacy Plan for Drug Dosing: Pharmacy Service will continue to monitor and adjust dosing as required. Medications Vancomycin HCl (Vancomycin) 1,000 mg in 200 mls @ 200 mls/hr IV Q12H OMER Discontinued Medications Vancomycin HCl 1,500 mg/ (Sodium Chloride) 530 mls @ 250 mls/hr IV X1 ONE Stop: 11/20/20 22:07 Last Admin: 11/20/20 20:31 Dose: 250 mls/hr Documented by: Follow-Up Labs: Trough Vancomycin Labs to be done on [date and time ordered]: 11/22 @ 0800
[2020-11-21] MEDS: Ibuprofen 600 MG Tablet PO ×3 (00:26→11:37)
[2020-11-21 03:23] VITALS: BP 114/69; PULSE 55; RESP 16; TEMP 36.6; O2SAT 97
[2020-11-21 05:37] VITALS: BP 119/74; PULSE 63; RESP 16; TEMP 36.5; O2SAT 97
[2020-11-21 06:55] LABS: Absolute Lymphocyte Count 2.37 X10^3/uL (0.83-4.51); Absolute Neutrophil Count 5.4 X10^3/uL (2.0-7.7); Basophil# 0.07 X10^3/uL; Basophil% 0.8 % (0-1); Eosinophil# 0.41 X10^3/uL; Eosinophils% 4.4 % (0-5); Hematocrit 38.7 % (37-47); Hemoglobin 11.9 g/dL (12.0-15.0); Lymphocyte # 2.37 X10^3/ul (0.83-4.51); Lymphocyte % 25.6 % (19-41); Mean Corp Hgb Conc 30.7 g/dL (32-36); Mean Corpuscular Hgb 28.8 pg (27.0-32.0); Mean Corpuscular Volume 93.7 fL (81-99); Mean Platelet Vol. 10.9 fl (6.2-12.0); Monocyte# 1.04 X10^3/uL; Monocyte% 11.2 % (0-10); NRBC Flagged by Analyzer 0 % (0-5); Neutrophil # 5.36 X10^3/uL (2.7-7.7); Neutrophil % 57.8 % (47-70); Platelet Count 311 K/mm3 (150-450); RBC Distribution Width CV 15.6 % (11.6-14.6); RBC Distribution Width SD 54.3 fl (35.1-43.9); Red Blood Count 4.13 M/mm3 (4.2-5.4); White Blood Count 9.3 K/mm3 (4.4-11.0)
[2020-11-21 08:45] VITALS: BP 131/75; PULSE 70; RESP 16; TEMP 36.9; O2SAT 95
[2020-11-21] MEDS: Vancomycin IV 1,000 MG/200 ML BAG 200 MG IV (08:48)
--- NOTE | 2020-11-21 09:44 | ADDICTION ---
This creative writer met with PT to conduct ASAM, MSE, DUDIT assessments and to plan for d/c. PT A+Ox4 and engaged appropriately. PT requested referral to [facility]- referral made. This creative writer will f/u with PT and [facility] to coordinate admit. PT plans to d/c to home, to collect her belongings for residential, and will admit same day of d/c from [facility]. PT amiable to plan. All assessments completed, faxed to [facility] and placed in PT's chart. PT did not identify a need for transportation to home following d/c.
--- NOTE | 2020-11-21 12:46 | NURSING ---
Patient called out and states she wants to leave. She states that since she has not had any w/d symptoms yet she doesn't think she will have any at all. She states she is planning to go to [facility].
--- NOTE | 2020-11-21 13:52 | DS.PCM_ITS ---
Providers Date of Admission: 11/20/20 Primary Care Physician: LAURA ArguelloC Reason For Visit: OPIOID DETOX, CELLULITIS OF THE HAND Diagnosis Discharge Diagnosis (1) Desire for detoxification: Status: Acute (2) Heroin addiction: Status: Acute Code(s): F11.20 - Opioid dependence, uncomplicated (3) Cellulitis of finger of left hand: Status: Acute Code(s): L03.012 - Cellulitis of left finger Medications at Discharge Home Medications NK 11/20/20 Hospital Course Operations None Procedures None Summary of Care Provided Minutes Spent on Discharge: 15 Hospital Course: Leonie Rajan is a 44-year-old female who presented to the emergency department yesterday for acute opiate detox. She at that time also complained of redness and swelling on the dorsum of her left hand that started the day prior to presentation. She had last injected into her left hand 3 to 4 days prior to presentation. She uses a half a gram of heroin a day. She denied other drug use but her tox screen on admission was also positive for cocaine and methamphetamines. She was admitted to [facility] and treated with antibiotics for her hand and with a Suboxone taper for her opiate withdrawal. Supportive medications were ordered as well. In the early afternoon of 11/21/2020 the patient elected to leave AGAINST MEDICAL ADVICE and signed out. Discharge diagnoses Acute opiate withdrawal Cellulitis-dorsum of left hand Heroin addiction Polysubstance abuse Tobacco abuse Physical Exam Const alert, oriented x3, no apparent distress and average body habitus Constitutional Narrative: Middle-aged white female who appears older than stated age, sitting up in bed, appears comfortable General Appearance: cooperative Orientation / Consciousness: awake, oriented to person, oriented to place and oriented to time HEENT normocephalic and head/scalp atraumatic Eyes PERRL and EOMs intact bilaterally Neck supple Neck Narrative: Trachea midline Resp normal respiratory effort, no retractions and no use of accessory muscles Resp Narrative: Diminished diffusely but clear Cardio regular rate, regular rhythm, S1 normal heart sound, S2 normal heart sound, no murmurs, no rub, no gallops, no clicks and no JVD GI normal to inspection, nondistended, normoactive bowel sounds, soft to palpation, non-tender and non-distended Extremity Extremity Narrative: On the dorsum of the left hand there is a circular area that was mildly erythematous and indurated, this area was approximately the size of a silver dollar, it was mildly tender Neuro oriented x3, CN's II-XII intact bilaterally, moves all extremities and no focal motor deficits Sensorium / Orientation: awake, alert, oriented to person, oriented to place and oriented to time Speech: speech normal Psych Psych Narrative: Flat affect, depressed mood ABG / Lab / Microbiology Data Result Diagrams: 11/21/20 06:36 11/20/20 18:30 Laboratory: Laboratory Results - last 24 hr 11/20/20 11/20/20 11/20/20 18:30 18:30 18:30 WBC 9.2 RBC 4.20 Hgb 12.0 Hct 37.9 MCV 90.2 MCH 28.6 MCHC 31.7 L RDW Std Deviation 52.5 H RDW Coeff of Renuka 15.8 H Plt Count 314 MPV 10.1 Immature Gran % (Auto) 0.200 Neut % (Auto) 58.4 Lymph % (Auto) 24.6 [place] % (Auto) 11.6 H Eos % (Auto) 4.4 Baso % (Auto) 0.8 Absolute Neuts (auto) 5.4 Absolute Lymphs (auto) 2.27 Nucleated RBC % 0 Sodium 137 Potassium 3.9 Chloride 106 Carbon Dioxide 27.0 Anion Gap 4 L BUN 7 Creatinine 0.83 Estim Creat Clear Calc 65.27 Est GFR (MDRD) Af Amer 96 Est GFR (MDRD) Non-Af 79 BUN/Creatinine Ratio 8.4 L Glucose 80 Lactic Acid Calcium 8.6 Total Bilirubin 0.10 L AST 27 ALT 33 Alkaline Phosphatase 98 Total Protein 7.5 Albumin 3.1 L Globulin 4.4 H Albumin/Globulin Ratio 0.7 L Serum , Qual Urine Opiates Screen Urine Methadone Screen Ur Barbiturates Screen Ur Phencyclidine Scrn Ur Amphetamines Screen U Methamphetamin-MDMA U Benzodiazepines Scrn Urine Cocaine Screen U Cannabinoids Screen Ur Drug Screen Comment Ethyl Alcohol 6.0 11/20/20 11/20/20 11/20/20 18:30 18:30 18:57 WBC RBC Hgb Hct MCV MCH MCHC RDW Std Deviation RDW Coeff of Renuka Plt Count MPV Immature Gran % (Auto) Neut % (Auto) Lymph % (Auto) [place] % (Auto) Eos % (Auto) Baso % (Auto) Absolute Neuts (auto) Absolute Lymphs (auto) Nucleated RBC % Sodium Potassium Chloride Carbon Dioxide Anion Gap BUN Creatinine Estim Creat Clear Calc Est GFR (MDRD) Af Amer Est GFR (MDRD) Non-Af BUN/Creatinine Ratio Glucose Lactic Acid 1.8 Calcium Total Bilirubin AST ALT Alkaline Phosphatase Total Protein Albumin Globulin Albumin/Globulin Ratio Serum , Qual NEGATIVE Urine Opiates Screen POSITIVE H Urine Methadone Screen NEGATIVE Ur Barbiturates Screen NEGATIVE Ur Phencyclidine Scrn NEGATIVE Ur Amphetamines Screen NEGATIVE U Methamphetamin-MDMA POSITIVE H U Benzodiazepines Scrn NEGATIVE Urine Cocaine Screen POSITIVE H U Cannabinoids Screen NEGATIVE Ur Drug Screen Comment Ethyl Alcohol 11/21/20 11/21/20 06:36 06:36 WBC 9.3 RBC 4.13 L Hgb 11.9 L Hct 38.7 MCV 93.7 MCH 28.8 MCHC 30.7 L RDW Std Deviation 54.3 H RDW Coeff of Renuka 15.6 H Plt Count 311 MPV 10.9 Immature Gran % (Auto) 0.200 Neut % (Auto) 57.8 Lymph % (Auto) 25.6 [place] % (Auto) 11.2 H Eos % (Auto) 4.4 Baso % (Auto) 0.8 Absolute Neuts (auto) 5.4 Absolute Lymphs (auto) 2.37 Nucleated RBC % 0 Sodium Cancelled Potassium Cancelled Chloride Cancelled Carbon Dioxide Cancelled Anion Gap Cancelled BUN Cancelled Creatinine Cancelled Estim Creat Clear Calc Cancelled Est GFR (MDRD) Af Amer Cancelled Est GFR (MDRD) Non-Af Cancelled BUN/Creatinine Ratio Cancelled Glucose Cancelled Lactic Acid Calcium Cancelled Total Bilirubin Cancelled AST Cancelled ALT Cancelled Alkaline Phosphatase Cancelled Total Protein Cancelled Albumin Cancelled Globulin Cancelled Albumin/Globulin Ratio Cancelled Serum , Qual Urine Opiates Screen Urine Methadone Screen Ur Barbiturates Screen Ur Phencyclidine Scrn Ur Amphetamines Screen U Methamphetamin-MDMA U Benzodiazepines Scrn Urine Cocaine Screen U Cannabinoids Screen Ur Drug Screen Comment Ethyl Alcohol D/C Instructions Discharge Diet: No restrictions Meaningful Use Info Meaningful Use Diagnoses (Choose all that apply): None applicable Discharge Plan Admission Admit Date/Time: 11/20/20 19:58 Attending Provider: Khadra Chang Primary Care Provider: Hebert Cotter NP Discharge Orders/Prescriptions Prescriptions: No Action NK RF: 0 Referrals / Follow Up: Hebert Cotter NP, [employer] [Primary Care Provider] - Disposition Disposition (needs filled in before D/C Order can be placed): Against Medical Advice
== END 2020-11-21 12:35 | disposition left against medical advice (07) ==
LOC: ED 19:36 → MS3 11-21 06:24
PROVIDERS: Nurse Practitioner Family; Admitting Provider Family Medicine; Emergency Provider Emergency Medicine; PCP Nurse Practitioner Family; Visit Provider Internal Medicine
DX: F11.23 Opioid dependence with withdrawal (principal); L03.012 Cellulitis of left finger; F17.200 Nicotine dependence, unspecified, uncomplicated; F14.90 Cocaine use, unspecified, uncomplicated
CPT/HCPCS: 80053; 80307; 82077; 83605; 84703; 85025; 96365; 96366; 96367; 99218; 99285; J7040; J7050; A4216; G0378